=== PATIENT | male | born 1950 | race Caucasian/White ===

== ENCOUNTER 2018-03-06 22:49 | Emergency (ER) | payer MEDICARE, MEDICAID ==
[2018-03-06] MEDS ORDERED: Morphine INJ* 4 MG/ML 1 ML SYRINGE (NEW SYRINGE VERSION) IV ONE (22:50)
[2018-03-06] MEDS ORDERED: Ticagrelor* 90 MG TAB PO ONE (22:53)
[2018-03-06] MEDS ORDERED: NS 0.9% 1000 ML* 2,000 ML IV ONE (22:53)
[2018-03-06] MEDS ORDERED: Morphine INJ** 4 MG/ML 1 ML CARPUJECT IV ONE (22:53)
[2018-03-06] MEDS ORDERED: Heparin for STEMI(*) 5,000 UNITS/ML 1 ML VIAL IV ONE (22:53)
[2018-03-06] MEDS ORDERED: Aspirin 81 mg CHEW TAB* 81 MG TAB.CHEW PO ONE (22:54)
[2018-03-06] MEDS ORDERED: Ondansetron INJ* 2 MG/ML VIAL IV ONE (22:55)
[2018-03-06] MEDS ORDERED: Sodium Bicarbonate 8.4%* 50 ML SYRINGE ONE ×5 (23:06→23:21)
--- NOTE | 2018-03-06 23:07 | ED ---
HPI Chest Pain - HPI Summary HPI Summary: 67 years old male with unknown past medical history. Patient has not seen doctors for years as per his family. However they stated that patient has history of heavy drinking alcohol. He almost drinks every day. According to patient's family including his daughter who is a nurse in the emergency room. Patient was not feeling well yesterday, he was having some chest discomfort. This evening patient did have sudden onset of crushing chest pain, difficulty breathing, and diaphoresis. 911 was called, according to EMS patient was hypotensive and diaphoretic. EKG did show possible STEMI. According to EMS patient did have syncopal episode at home. Patient's history was taken from his family, as patient was in acute distress, he was not able to finish sentences. However he is. complaining of severe chest pain and difficulty breathing - History of Current Complaint Hx Obtained From: Family/Ortho Rn - Daughter, , EMS Onset/Duration: Started Hours Ago - 21:40, Still Present Timing: Constant Current Severity: Severe Pain Intensity: 10 Pain Scale Used: 0-10 Numeric Chest Pain Location: Diffuse Character: Crushing Aggravating Factor(s): Other: - Unknown Associated Signs and Symptoms: Positive: Chest Pain, Weakness, Shortness of Breath, Diaphoresis, Nausea, Cough PMH/Surg Hx/FS Hx/Imm Hx Previously Healthy: No Infectious Disease History: No Infectious Disease History: Denies: Traveled Outside the [place] in Last 30 Days - Social History Lives: With Family Alcohol Use: Daily Hx Tobacco Use: No Smoking Status (MU): Never Smoked Tobacco Review of Systems Positive: Skin Diaphoresis Positive: Chest Pain Positive: Shortness Of Breath. Negative: Cough Positive: Nausea Positive: Other - Pallor Positive: Weakness, Syncope All Other Systems Reviewed And Are Negative: No Physical Exam - Summary Physical Exam Summary: VITAL SIGNS: Reviewed. GENERAL: Patient is in acute distress, complaining of substernal chest pain, patient is diaphoretic and seems short of breath, pale. HEAD AND FACE: No signs of trauma. No ecchymosis, hematomas or skull depressions. No sinus tenderness. EYES: PERRLA, EOMI x 2, No injected conjunctiva, no nystagmus. EARS: Hearing grossly intact. Ear canals and tympanic membranes are within normal limits. MOUTH: Oropharynx within normal limits. NECK: Supple, trachea is midline, no adenopathy, no JVD, no carotid bruit, no c- spine tenderness, neck with full ROM. CHEST: Symmetric, no tenderness at palpation LUNGS: Decreased breath sounds bilaterally. Difficulty breathing. CVS: Regular rate and rhythm, S1 and S2 present, no murmurs or gallops appreciated. Hypotensive upon arrival. ABDOMEN: Soft, non-tender. No signs of distention. No rebound no guarding, and no masses palpated. Bowel sounds are normal. EXTREMITIES: FROM in all major joints, no edema, no cyanosis or clubbing. NEURO: Alert and oriented to his name, patient follow commands, grossly nonfocal exam.. Able to speak but not able to finish sentences. Answers yes/no questions. Because of his respiratory distress. SKIN: Diaphoretic, pale , cold extremities. Triage Information Reviewed: Yes Vital Signs On Initial Exam: Initial Vitals Temp Pulse Resp BP Pulse Ox 86.5 F 96 29 68/42 98 03/06/18 22:52 03/06/18 22:52 03/06/18 22:52 03/06/18 22:52 03/06/18 22:52 Vital Signs Reviewed: Yes Procedures - Procedure Summary Procedure Summary: Arterial Line Placement: Under US guidance arterial line placed in the right femoral artery for monitoring BP. - Intubation Time of Intubation: 23:13 - Medication atomidate Intubation Method: orotracheal Tube Size (cm): 7.5 Breath Sounds after Intubation: equal Intubation Complications: no complications Post Intubation Xray: No Diagnostics - Vital Signs Vital Signs Temp Pulse Resp BP Pulse Ox 03/06/18 22:52 86.5 F 96 29 68/42 98 - Laboratory Lab Statement: Any lab studies that have been ordered have been reviewed, and results considered in the medical decision making process. - Radiology CXR Xray Interpretation: No Acute Changes - No acute process. Pending official radiology report. Radiology Interpretation Completed By: ED Physician - EKG 22:46 Cardiac Rate: NL - 99 bpm EKG Rhythm: Sinus Rhythm EKG Interpretation: RBBB, ST elevation V1-V5, poor quality due to pt being sweaty 22:54 Cardiac Rate: NL - 97 bpm EKG Rhythm: Sinus Rhythm EKG Interpretation: RBBB, ST elevation V1-V5, poor quality due to pt being sweaty Chest Pain Course/Dx - Course Course Of Treatment: Pt is a 67 y/o male BIBA who presents to the ED c/o CP and SOB. As per daughter who is a nurse in the ED, he began to have some sx yesterday but he ignored them. Today when she came home she noticed the pt began coughing a lot. He then felt severe crushing CP with dyspnea, and had a syncopal episode at 21:40. As per EMS, he is hypotensive, hypoxic, pale, diaphoretic, and has difficulty finishing a sentence because of the stress. Pt also reports weakness and nausea. 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 An EKG performed by EMS shows a STEMI in all anterior leads. His O2 sat is 98%, and BP is 68/44. As per family, he is a heavy drinker, and does not go to the doctor. He is accompanied by his family. STEMI called at 22:48. ABC alert called at 23:03. Patient is a level 5 caveat due to his condition, therefore a proper history was not able to be obtained. A CXR revealed no acute process. An EKG at 22:46 revealed rate of 99 bpm, RBBB, ST elevation V1-V5, and poor quality due to pt being sweaty. Code STEMI was called immediately upon patient's arrival. An EKG at 22:54 revealed rate of 97 bpm, RBBB, ST elevation V1-V5, and poor quality due to pt being sweaty. Pt was intubated and a femoral central line was placed. Pt went into cardiac arrest at 23:03. ACLS protocol was started, please refer to code sheet for medications and management. Time of called at 23:40. Family was present, pts daughter requested to stop CPR and for pt to be pronounced. He was asystole at this time. At 12:21 consulted Sabiha Ahuja, who states that pt [place] [facility] [place]. Final dx are acute PR and cardiac arrest. - Diagnoses Provider Diagnoses: Acute PR, Cardiac arrest During the Visit The Following Alert/Code Occurred: STEMI - Called at 22:48, ABC Alert - Called at 23:03. - Provider Notifications Discussed Care Of Patient With: José Antonio Boss Time Discussed With Above Provider: 23:20 Instructed by Provider To: Other - Dr. Boss arrived at the scene at 23:20. At 12:21 Spoke to Sabiha Ahuja, who states that pt will be held at the [facility] [place] and will be seen tomorrow. - Critical Care Time Critical Care Time: 30-74 min Discharge - Sign-Out/Discharge Documenting (check all that apply): Patient Departure - - Discharge Plan Condition: Disposition: Referrals: Lydia Goncalves MD [Primary Care Provider] - - Billing Disposition and Condition Condition: Disposition: - Attestation Statements Document Initiated by Gerrie: Yes Documenting Scribe: Yudith Shin Provider For Whom Mike is Documenting (Include Credential): Nellie Casillas MD Scribe Attestation: Yudith Russell, scribed for Nellie Casillas MD on 03/07/18 at 0609. Scribe Documentation Reviewed: Yes Provider Attestation: The documentation as recorded by the аннаibYudith rosado accurately reflects the service I personally performed and the decisions made by me, Nellie Casillas MD
[2018-03-06] MEDS ORDERED: Etomidate* 2 MG/ML 20 ML VIAL (40 MG) ONE (23:11)
[2018-03-06] MEDS ORDERED: EPINEPHrine SYR 0.1MG/ML* SYRINGE ONE (23:12)
[2018-03-06] MEDS ORDERED: Norepinephrine 16MCG/ML IVPRE* (4 MG/250 ML) IV ONE (23:20)
[2018-03-06 23:44] VITALS: BP 99/47
--- NOTE | 2018-03-07 08:20 | RAD ---
HISTORY: CP COMPARISONS: August 27, 2008 VIEWS: 1: frontal AP view of the chest at 11:00 PM FINDINGS: LINES AND TUBES: A transcutaneous pacer pad is noted. CARDIOMEDIASTINAL SILHOUETTE: The cardiomediastinal silhouette is normal for portable technique. PLEURA: The costophrenic angles are sharp. No pleural abnormalities are noted. LUNG PARENCHYMA: The lungs are clear. ABDOMEN: The upper abdomen is clear. There is no subphrenic gas. BONES AND SOFT TISSUES: No bone or soft tissue abnormalities are noted. IMPRESSION: NO ACTIVE CARDIOPULMONARY DISEASE. R1
== END 2018-03-06 23:40 | disposition expired ==
LOC: ED 22:49
DX: I21.9 Acute myocardial infarction, unspecified (principal); I46.9 Cardiac arrest, cause unspecified; R07.9 Chest pain, unspecified; R06.02 Shortness of breath; R11.0 Nausea
CPT/HCPCS: 71045; 93005; 96374; 96375; 99285; J0171; J2270